=== PATIENT | female | born 1960 | race Caucasian/White ===

== ENCOUNTER 2020-11-26 14:48 | Inpatient (IN) | payer SELFPAY ==
[~2020-11-26] VITALS: Ht 167.6 cm; Wt 54.4 kg
[2020-11-26 14:53] VITALS: BP_SYST 133
--- NOTE | 2020-11-26 14:59 | NUR ---
Patient triaged and placed in bed 5 attached to monitor. Report given to Mariano MATOS.
--- NOTE | 2020-11-26 15:00 | NUR ---
MD HU AT BEDSIDE ASSESSING PT.
[2020-11-26 15:51] LABS: HEMATOCRIT 37.3 % (36-48); WHITE BLOOD COUNT (AUTO) 5.9 K/uL (4.8-10.8)
--- NOTE | 2020-11-26 16:01 | NUR ---
CXR COMPLETED, REFUSES CT HEAD, [id number] AWARE OF REFUSAL
[2020-11-26 16:04] LABS: BASOPHILS % (AUTO) 0.6 % (0.0-2.0); EOSINOPHILS % (AUTO) 0.6 % (0.0-4.0); HEMOGLOBIN 12.6 g/dL (12.0-16.0); LYMPHOCYTES # (AUTO) 1.5 K/uL (1.0-5.5); LYMPHOCYTES % (AUTO) 25.1 % (20.5-51.5); MEAN CORPUSCULAR HEMOGLOBIN 33 pg (27-31); MEAN CORPUSCULAR HGB CONC 34 % (32-36); MEAN CORPUSCULAR VOLUME 98 fL (79.0-98.0); MONOCYTES # (AUTO) 0.2 K/uL (0.0-1.0); MONOCYTES % (AUTO) 2.7 % (1.7-9.3); NEUTROPHILS # (AUTO) 4.2 K/uL (1.8-7.7); PLATELET COUNT (AUTO) 267 K/uL (130-430); RED BLOOD CELL COUNT(AUTO) 3.83 MIL/uL (4.2-6.2)
--- NOTE | 2020-11-26 16:13 | NUR ---
OFF TO CT, COOPERATIVE, NO DISTRESS,
[2020-11-26 16:14] LABS: ALANINE AMINOTRANSFERASE 45 U/L (12-78); ALBUMIN 3.6 g/dL (3.4-4.8); AMYLASE 92 U/L (0-100); ASPARTATE AMINOTRANSFERASE 66 U/L (10-37); CREATININE 0.75 mg/dL (0.55-1.30); LIPASE 101 U/L (73-393); TOTAL BILIRUBIN 0.4 mg/dL (0.0-1.0); UREA NITROGEN, BLOOD 14 mg/dL (8-21)
[2020-11-26 16:22] LABS: GLUCOSE 67 mg/dL (70-99)
[2020-11-26 16:23] LABS: GFR AFRICAN AMERICAN 102 mL/min (>90); PROTHROMBIN TIME 10.2 SECS (9.5-12.5)
[2020-11-26 16:24] LABS: ALCOHOL, BLOOD 430 mg/dL (<10)
[2020-11-26 16:25] LABS: POTASSIUM 2.3 mmol/L (3.5-5.1); SODIUM SERUM 147 mmol/L (136-145)
[2020-11-26 16:26] LABS: ANION GAP 20 (5-15); CHLORIDE 104 mmol/L (98-107)
[2020-11-26 16:42] LABS: ACETONE, SERUM NEGATIVE (NEGATIVE)
[2020-11-26] MEDS ORDERED: KCL 20 mEq in 100 mL (PREMIX) 100 ML IV ONE (16:45)
[2020-11-26] MEDS ORDERED: NACL 0.9% 1,000 ML IV ONE (16:45)
[2020-11-26] MEDS ORDERED: LORazepam 2 MG/ML VIAL IVP ONE ×3 (17:00→19:45)
--- NOTE | 2020-11-26 17:00 | NUR ---
ADMITTED TO TELE UNIT FOR ETOH. PT IS HELD IN ER FOR NOW.
[2020-11-26] MEDS ORDERED: FOLIC ACID 1 MG, THIAMINE HCL 100 MG, MAGNESIUM SULFATE 1 GM, MVI 10 ML in NACL 0.9% 1,... IV ONE ×3 (17:15→17:45)
--- NOTE | 2020-11-26 17:30 | NUR ---
MEDS AND FLUIDS INFUSING. PT WANTS TO SIGN AMA. RN IS ENCOURAGING HER STRONGLY TO FINISH HER MEDICATION OF VITAMINS AND MINERALS, POTASSIUM.
[2020-11-26] MEDS ORDERED: THIAMINE HCL 100 MG, MAGNESIUM SULFATE 1 GM in NS 100 ML IV ONE (17:45)
[2020-11-26] MEDS ORDERED: FOLIC ACID 1 MG, MVI 10 ML in NACL 0.9% 1,000 ML IV ONE (17:45)
[2020-11-26 17:46] LABS: BARBITURATE, URINE NEGATIVE (NEG <=200); BENZODIAZEPINE, URINE NEGATIVE (NEG <=150); CANNABINOID, URINE NEGATIVE (NEG <=50); COCAINE, URINE NEGATIVE (NEG <=150); METHAMPHETAMINES SCREEN,URINE NEGATIVE (NEG <=500); OPIATE, URINE NEGATIVE (NEG <=100); PHENCYCLIDINE SCREEN,URINE NEGATIVE (NEG <=25); UR TRICYCLIC ANTIDEPRESSANTS NEGATIVE (NEG <=300); URINE AMPHETAMINE NEGATIVE (NEG <=500); URINE METHADONE NEGATIVE (NEG <=200); URINE OXYCODONE SCREEN NEGATIVE (NEG <=100); URINE PROPOXYPHENE SCREEN NEGATIVE (NEG <=300)
--- NOTE | 2020-11-26 18:40 | NUR ---
COVID SWAB PERFORMED AT BEDSIDE AND SENT TO LAB
[2020-11-26 19:00] VITALS: BP_SYST 134
--- NOTE | 2020-11-26 19:08 | NUR ---
PT EATING DINNER, AND MUCH MORE COOPERATIVE AND CALM. REPORT TO POLYMERIZATION ENGINEER.
[2020-11-26] MEDS ORDERED: DIPHENHYDRAMINE INJ 50 MG/ML VIAL IVP ONE (19:45)
[2020-11-26] MEDS ORDERED: DIPHENHYDRAMINE INJ 50 MG/ML VIAL ONE (19:46)
[2020-11-26] MEDS ORDERED: LORazepam 2 MG/ML VIAL ONE (19:49)
--- NOTE | 2020-11-26 19:54 | NUR ---
Patient noted to have increased restlessness and agitation for which patient started to pull out her iv h.l. to RAC (which has since been dc'd 2nd to kinked cath), # 22gauge angiocath placed to right wrist. Use of asceptic technique. Opsite placed over site. Blood return noted. Flushed with 10 cc of normal saline. No evidence of infiltration noted. Patient tolerated well. patient medicated as ordered w/ benadryl and ativan ivp. patient returned to bed, which is low position, sr up. continue to monitor level of comfort and safety.
--- NOTE | 2020-11-26 20:10 | NUR ---
ACCU-CHEK 122.
--- NOTE | 2020-11-26 20:28 | NUR ---
PT ASLEEP. NO DISTRESS NOTED. VSS 103, 26, 96%, 153/93.
--- NOTE | 2020-11-26 22:08 | NUR ---
DR FALK HERE, AT BEDSIDE EXAMINING PT.
[2020-11-26] MEDS ORDERED: chlordiazePOXIDE HCL 10 MG CAPSULE PO SCH (22:15)
[2020-11-26] MEDS ORDERED: POTASSIUM CHLORIDE 20 MEQ TAB.PRT.SR PO ONE (22:15)
[2020-11-26] MEDS ORDERED: LR 1,000 ML IV SCH (22:15)
[2020-11-26] MEDS ORDERED: KCL 20 mEq in 100 mL (PREMIX) 200 ML IV ONE (22:44)
[2020-11-26] MEDS: POTASSIUM CHLORIDE 40 MEQ in NS 250 ML IV SCH (22:56)
[2020-11-27] MEDS ORDERED: chlordiazePOXIDE HCL 25 MG CAPSULE ONE (00:39)
[2020-11-27] MEDS: LORazepam 2 MG/ML VIAL IVP PRN ×2 (00:54→05:39)
--- NOTE | 2020-11-27 00:54 | NUR ---
AWAKE, INSISTING ON GOING HOME. NON-COOPERATIVE. NEEDED CONVINVING TO STAY TILL MORNING. REORIENTED TO TIME AND PLACE. PULLED OFF HER IV. RESTARTED IV G#20 IN RIGHT FOREARM USING ASEPTIC TECHNIQUE. LIBRIUM 20 MG PO GIVEN AND ATIVAN 1 MG IVP GIVEN FOR SEDATION.
--- NOTE | 2020-11-27 01:30 | NUR ---
AMBULATES TO BATHROOM TO URINATE WITH 1 NURSE ASSIST.
[2020-11-27] MEDS: POTASSIUM CHLORIDE 40 MEQ in NS 250 ML IV SCH (03:05)
[2020-11-27] MEDS ORDERED: KCL 20 mEq in 100 mL (PREMIX) 200 ML IV ONE (03:06)
--- NOTE | 2020-11-27 03:41 | NUR ---
SLEPT INTERMITTENTLY. AMBULATED AGAIN TO BATHROOM TO URINATE WITH SOME ASSIST.
--- NOTE | 2020-11-27 05:39 | NUR ---
AWAKE, AGITATED, WANTS TO GO HOME. AMBULATED TO BATHROOM TO URINATE WITH MINIMUM ASSIST. ATIVAN 1 MG IVP GIVEN FOR RESTLESSNESS.
--- NOTE | 2020-11-27 06:30 | NUR ---
PULLED OUT HER IV AND WALKED OUT TO PARKING LOT. ESCORTED BACK IN AND CONVINCED TO STAY A LITTLE LONGER. REFUSED PIV TO BE STARTED AT THIS TIME.
--- NOTE | 2020-11-27 07:16 | NUR ---
Report recieved from Bryan MATOS. Pt agitated and refuses to have IV put in at this time. Pt expresses she wants to go home. MD feels it is unsafe to have her sign out out AMA or discharged.
--- NOTE | 2020-11-27 07:30 | NUR ---
Pt given breakfast tray.
--- NOTE | 2020-11-27 07:54 | NUR ---
Medication reconciliation completed with information provided by Bryson MATOS. Any prior medication reconciliation on file was reviewed and corrected. Pt reports not taking any medications.
--- NOTE | 2020-11-27 08:18 | NUR ---
Pt not loaded in pyxis. Called pharmacy for AM meds. They will deliver as soon as possible.
--- NOTE | 2020-11-27 08:39 | NUR ---
Pt eating breakfast.
--- NOTE | 2020-11-27 08:46 | NUR ---
[facility] updated full code.
[2020-11-27] MEDS ORDERED: NEPHROVITE, (FOLIC ACID/VITAMIN B COMP W-C 1 TAB) PO SCH (09:00)
[2020-11-27] MEDS ORDERED: THIAMINE HCL 100 MG TABLET PO SCH (09:00)
[2020-11-27] MEDS ORDERED: POTASSIUM CHLORIDE 20 MEQ TAB.PRT.SR PO SCH (09:00)
--- NOTE | 2020-11-27 11:00 | NUR ---
Patient does not wish to proceed with medical care recommended by Dr. Mackenzie. Patient given information related to possible complications, up to and including , which could occur as a result of leaving hospital at this time. Patient verbalizes understanding of risks involved leaving against medical advice. Patient has signed AMA form.
== END 2020-11-27 09:47 | disposition left against medical advice (07) | DRG 641 ==
LOC: SED 14:48 → STU 17:23
PROVIDERS: ADMIT Internal Medicine; ATTEND Internal Medicine
DX: E87.6 Hypokalemia (principal); E87.2 Acidosis; F10.129 Alcohol abuse with intoxication, unspecified; Z20.822 Contact with and (suspected) exposure to COVID-19; Z86.73 Personal history of transient ischemic attack (TIA), and cerebral infarction without residual deficits; Z59.0 Homelessness
CPT/HCPCS: 36415; 70450-TC; 71045; 76376; 80053; 80307; 82009; 82140; 82150; 82962; 83605; 83690; 84484; 85025; 85610-TC; 85730-TC; 96365; 96375; 99285; G0378; G0482; J1200; J2060; J3411; J3475; J3480; J3490; J7030; J7050